=== PATIENT | female | born 1990 ===

== ENCOUNTER 2020-01-14 02:49 | Emergency (ER) | payer SELFPAY ==
[2020-01-14] MEDS ORDERED: METHYLPREDNISOLONE 125 MG INJ ONE (04:08)
[2020-01-14] MEDS ORDERED: DIPHENHYDRAMINE 50 MG/ML VIAL ONE (04:08)
[2020-01-14 04:09] LABS: Barbiturates NEGATIVE (NEGATIVE); Benzodiazepines NEGATIVE (NEGATIVE); Cocaine NEGATIVE (NEGATIVE); METHAMPHETAM NEGATIVE (NEGATIVE); Methadone NEGATIVE (NEGATIVE); Opiates NEGATIVE (NEGATIVE); Phencyclidine NEGATIVE (NEGATIVE); THC Cannibis NEGATIVE (NEGATIVE)
[2020-01-14] MEDS ORDERED: NA CHLORIDE 0.9% 1,000 ML ONE (04:09)
[2020-01-14 04:20] LABS: Urine Blood NEGATIVE (NEG); Urine Glucose NEGATIVE (NEG); Urine Protein NEGATIVE (NEG); Urine Specific Gravity <1.005 (1.005-1.030)
--- NOTE | 2020-01-14 04:30 | EDPHYS ---
Physician Documentation [facility] Name: Brendon Rabago Age: 29 yrs Sex: Female : 1990 Arrival Date: 01/14/2020 Time: 02:52 Bed 8 Private MD: ED Physician Orlando Clayton HPI: 01/13 03:21 This 29 yrs old Female presents to ER via Ambulatory with complaints of Rash. pkl 03:21 The patient's rash thought to be caused by an unknown cause. The rash is located on the pkl face. The rash can be described as patchy. Onset: The symptoms/episode began/occurred just prior to arrival, 3 hour(s) ago. Associated signs and symptoms: Pertinent positives: itching, chest pain and shortness of breath. Historical: - Allergies: 03:12 No Known Allergies; jb4 - Home Meds: 03:12 Zyrtec Oral [Active]; jb4 - PMHx: 03:12 Rhabdomyolysis; jb4 - PSHx: 03:12 ; jb4 - Immunization history:: Adult Immunizations up to date. - Social history:: Smoking status: Patient denies any tobacco usage or history of. Patient uses alcohol, Couple beers every other day.. Patient/guardian denies using street drugs. ROS: 03:21 Eyes: Negative for injury, pain, redness, and discharge, ENT: Negative for injury, pkl pain, and discharge, Neck: Negative for injury, pain, and swelling. 03:21 Cardiovascular: Positive for chest pain. 03:21 Respiratory: Positive for shortness of breath. 03:21 Abdomen/GI: Negative for abdominal pain, nausea, vomiting, and diarrhea. 03:21 Back: Negative for acute changes. 03:21 : Negative for urinary symptoms. 03:21 MS/extremity: Negative for acute changes. 03:21 Skin: Positive for swelling, of the face. 03:21 Neuro: Negative for altered mental status. Exam: 03:21 Eyes: Pupils equal round and reactive to light, extra-ocular motions intact. Lids and pkl lashes normal. Conjunctiva and sclera are non-icteric and not injected. Cornea within normal limits. Periorbital areas with no swelling, redness, or edema. 03:21 Head/face: Noted is rash. 03:21 Eyes: 03:21 ENT: Exam is negative for acute changes. 03:21 Neck: Exam negative for nuchal rigidity. 03:21 Chest/axilla: Exam negative for acute changes. 03:21 Cardiovascular: Rate: tachycardic, actual rate is 122 bpm, Rhythm: regular. 03:21 Respiratory: Respirations: normal, Breath sounds: are clear throughout. 03:21 Abdomen/GI: Bowel sounds: normal, Palpation: abdomen is soft and non-tender, in all quadrants. 03:21 Back: Exam negative for acute changes. 03:21 Musculoskeletal/extremity: Exam is negative for acute changes. 03:21 Skin: rash can be described as patchy, on the face. 03:21 Neuro: Orientation: is normal, Mentation: is normal, Cranial nerves: grossly normal, Motor: is normal. Vital Signs: 03:09 BP 128 / 91; Pulse 122; Resp 16; Temp 98.3(O); Pulse Ox 99% on R/A; Weight 74.84 kg jb4 (R); Height 5 ft. 7 in. (170.18 cm) (R); Pain 2/10; 04:45 BP 112 / 86; Pulse 89; Resp 16; Pulse Ox 100% on R/A; jb4 03:09 Body Mass Index 25.84 (74.84 kg, 170.18 cm) jb4 MDM: 02:54 Patient medically screened. pkl 04:26 Data reviewed: vital signs, nurses notes, lab test result(s), EKG. ED course: Patient pkl feeling better. Facial rash and itching improved.. 01/13 03:19 Order name: UDS; Complete Time: 04:10 pkl 01/13 03:19 Order name: ETOH Level; Complete Time: 04:23 pkl 01/13 03:20 Order name: D-Dimer; Complete Time: 04:23 pkl 01/13 04:04 Order name: Urine Dipstick--Ancillary (enter results); Complete Time: 04:23 mw2 01/13 03:19 Order name: EKG; Complete Time: 03:20 pkl Administered Medications: 04:09 Drug: SOLU-Medrol 125 mg Route: IVP; Site: left antecubital; jb4 04:40 Follow up: Response: No adverse reaction; Marked relief of symptoms jb4 04:10 Drug: NS 0.9% 1000 ml Route: IV; Rate: 1000 ml; Site: left antecubital; jb4 04:10 Drug: Benadryl 12.5 mg Route: IVP; Site: left antecubital; jb4 04:40 Follow up: Response: No adverse reaction; Marked relief of symptoms jb4 Disposition: 01/14/20 04:28 Discharged to Home. Impression: Facial rash. Ingestion of alcohol. - Condition is Stable. - Medication Reconciliation Form, Thank You Letter, Antibiotic Education, Prescription Opioid Use form. - Follow up: Private Physician; When: 2 - 3 days; Reason: Re-evaluation by your physician. - Problem is new. - Symptoms have improved. Signatures: Dispatcher [employer] EDMS Orlando Clayton MD MD pkl Ronn Alonso RN RN jb4 Kvng Crump RN RN rr5 Corrections: (The following items were deleted from the chart) 04:59 04:28 01/14/2020 04:28 Discharged to Home. Impression: Facial rash. Ingestion of rr5 alcohol. Condition is Stable. Forms are Medication Reconciliation Form, Thank You Letter, Antibiotic Education, Prescription Opioid Use. Follow up: Private Physician; When: 2 - 3 days; Reason: Re-evaluation by your physician. Problem is new. Symptoms have improved. pkl
--- NOTE | 2020-01-14 04:30 | ER ---
Nurse's Notes [facility] Name: Brendon Rabago Age: 29 yrs Sex: Female : 1990 Arrival Date: 01/14/2020 Time: 02:52 Bed 8 Private MD: Diagnosis: Facial rash. Ingestion of alcohol Presentation: 01/13 03:09 Chief complaint: Patient states: I have a rash on my face and chest pain that started jb4 at 2330 yesterday. I have SOB and the pain feels like a pressure pain. Coronavirus screen: Proceed with normal triage. Ebola Screen: No symptoms or risks identified at this time. Initial Sepsis Screen: Does the patient meet any 2 criteria? HR > 90 bpm. Yes Does the patient have a suspected source of infection? No. Patient's initial sepsis screen is negative. Risk Assessment: Do you want to hurt yourself or someone else? Patient reports no desire to harm self or others. Onset of symptoms was January 13, 2020. Transition of care: patient was not received from another setting of care. 03:09 Method Of Arrival: Ambulatory jb4 03:09 Acuity: OMRGAN 3 jb4 Triage Assessment: 03:09 General: Appears in no apparent distress. comfortable, Behavior is calm, cooperative. jb4 Historical: - Allergies: 03:12 No Known Allergies; jb4 - Home Meds: 03:12 Zyrtec Oral [Active]; jb4 - PMHx: 03:12 Rhabdomyolysis; jb4 - PSHx: 03:12 ; jb4 - Immunization history:: Adult Immunizations up to date. - Social history:: Smoking status: Patient denies any tobacco usage or history of. Patient uses alcohol, Couple beers every other day.. Patient/guardian denies using street drugs. Screenin:12 Abuse screen: Denies threats or abuse. Nutritional screening: No deficits noted. jb4 Tuberculosis screening: No symptoms or risk factors identified. Fall Risk None identified. Assessment: 03:12 General: Appears in no apparent distress. comfortable, Behavior is calm, cooperative, jb4 appropriate for age. Pain: Denies pain. Neuro: Level of Consciousness is awake, alert, obeys commands, Oriented to person, place, time, situation. Cardiovascular: Patient's skin is warm and dry. Respiratory: Airway is patent Respiratory effort is even, unlabored, Respiratory pattern is regular, symmetrical. GI: No signs and/or symptoms were reported involving the gastrointestinal system. : No signs and/or symptoms were reported regarding the genitourinary system. EENT: No signs and/or symptoms were reported regarding the EENT system. Derm: Skin is intact, Skin is pink, warm \T\ dry. Rash noted that is red, raised, on face. Musculoskeletal: Circulation, motion, and sensation intact. Range of motion: intact in all extremities. 04:00 Reassessment: Patient appears in no apparent distress at this time. Patient and/or jb4 family updated on plan of care and expected duration. Pain level reassessed. Patient is alert, oriented x 3, equal unlabored respirations, skin warm/dry/pink. 04:45 Reassessment: Patient appears in no apparent distress at this time. Patient and/or jb4 family updated on plan of care and expected duration. Pain level reassessed. Patient is alert, oriented x 3, equal unlabored respirations, skin warm/dry/pink. Patient states feeling better. Patient states symptoms have improved. Vital Signs: 03:09 BP 128 / 91; Pulse 122; Resp 16; Temp 98.3(O); Pulse Ox 99% on R/A; Weight 74.84 kg jb4 (R); Height 5 ft. 7 in. (170.18 cm) (R); Pain 2/10; 04:45 BP 112 / 86; Pulse 89; Resp 16; Pulse Ox 100% on R/A; jb4 03:09 Body Mass Index 25.84 (74.84 kg, 170.18 cm) jb4 ED Course: 02:52 Patient arrived in ED. ag3 02:54 Orlando Clayton MD is Attending Physician. pkl 03:09 Ronn Alonso, ENOC is Primary Nurse. jb4 03:11 Triage completed. jb4 03:12 Arm band placed on right wrist. jb4 03:12 Patient has correct armband on for positive identification. Placed in gown. Bed in low jb4 position. Call light in reach. Side rails up X 1. Pulse ox on. NIBP on. 03:55 Inserted saline lock: 20 gauge in right antecubital area, using aseptic technique. dh4 04:45 No provider procedures requiring assistance completed. IV discontinued, intact, jb4 bleeding controlled, No redness/swelling at site. Pressure dressing applied. Administered Medications: 04:09 Drug: SOLU-Medrol 125 mg Route: IVP; Site: left antecubital; jb4 04:40 Follow up: Response: No adverse reaction; Marked relief of symptoms jb4 04:10 Drug: NS 0.9% 1000 ml Route: IV; Rate: 1000 ml; Site: left antecubital; jb4 04:10 Drug: Benadryl 12.5 mg Route: IVP; Site: left antecubital; jb4 04:40 Follow up: Response: No adverse reaction; Marked relief of symptoms jb4 Outcome: 04:28 Discharge ordered by . pkl 04:45 Discharged to home ambulatory. jb4 04:45 Condition: stable 04:45 Discharge instructions given to patient, Instructed on discharge instructions, follow up and referral plans. Demonstrated understanding of instructions, follow-up care. 04:59 Patient left the ED. rr5 Signatures: Orlando Clayton MD MD pkl Ronn Alonso, RN RN jb4 Maribel Jeronimo Raymond, RN RN rr5 [place] 4 Corrections: (The following items were deleted from the chart) 07:34 03:12 Derm: Skin is intact, Skin is pink, warm \T\ dry. jb4 jb4 07:36 04:45 Discharge instructions given to patient, Instructed on discharge instructions, jb4 follow up and referral plans. Demonstrated understanding of instructions, follow-up care, jb4
[2020-01-14 05:26] VITALS: BP 128/91; TEMP 98.3; O2SAT 99
--- NOTE | 2020-01-14 06:48 | EKG ---
Test Date: 2020-01-14 Test Time: 03:36:02 [employer] Operator: GALINDO MEASUREMENT RESULTS: Intervals: Rate: 118 ND: 164 QRSD: 78 QT: 308 QTc: 431 Seltzer: P: 63 ND: 164 QRS: 83 T: 16 INTERPRETIVE STATEMENTS: Sinus tachycardia Otherwise normal ECG No previous ECG available for comparison Electronically Signed On 01-14-20 06:48:18 CDT by Robert Ashraf
== END 2020-01-14 04:59 | disposition home or self-care (01) ==
LOC: ER 02:49
DX: R21 Rash and other nonspecific skin eruption (principal); T51.91XA Toxic effect of unspecified alcohol, accidental (unintentional), initial encounter
CPT/HCPCS: 36415; 80307; 80320; 81003; 85379; 93005; 96374; 96375; 99283; J1200; J2930; J7030